=== PATIENT | female | born 1995 | race Caucasian/White ===

== ENCOUNTER 2017-01-22 17:19 | Emergency (ER) | payer BC, OTHER ==
[~2017-01-22] VITALS: Wt 59.0 kg
[2017-01-22 18:17] LABS: BASO % 0.1 % (0.0-1.0); EOS # 0.1 10*3/uL (0.0-0.4); EOS % 0.9 % (1.0-4.0); HEMATOCRIT 34.1 % (37.0-47.0); HEMOGLOBIN 11.6 g/dl (12.0-16.0); LYMPH # 1.5 10*3/uL (1.3-4.4); LYMPH % 12.7 % (27.0-41.0); MEAN CELL VOLUME 93.7 fl (81.0-99.0); MEAN CORPUSCULAR HGB 31.9 pg (27.0-31.0); MEAN PLATELET VOLUME 9.8 fl (9.6-12.3); MONO # 0.8 10*3/uL (0.1-1.0); MONO % 7.2 % (3.0-9.0); NEUT % 78.6 % (47.0-73.0); PLATELET COUNT AUTOMATED 182 10*3/uL (130-400); RED BLOOD COUNT 3.64 10*6/uL (4.10-5.10); RED CELL DISTRI WIDTH 13.3 % (0-14.5); WHITE BLOOD COUNT 11.5 10*3/uL (4.8-10.8)
[2017-01-22 18:34] LABS: ALBUMIN 3.5 gm/dl (3.1-4.5); ALKALINE PHOSPHATASE 64 U/L (45-117); BUN 13 mg/dl (7-24); CHLORIDE 102 mmol/L (98-107); CREATININE 0.75 mg/dL (0.55-1.02); POTASSIUM 3.7 mmol/L (3.5-5.1); SGOT/AST 13 IU/L (3-35); SGPT/ALT 18 U/L (12-78); SODIUM 137 mmol/L (136-145); TOTAL PROTEIN 8.5 gm/dL (6.4-8.2)
[2017-01-22] MEDS ORDERED: CLINDAMYCIN150 MG PO ×2 (18:51→19:14)
== END 2017-01-22 19:01 | disposition home or self-care (01) ==
LOC: ED 17:19
PROVIDERS: Nurse Practitioner Family
DX: O98.812 Other maternal infectious and parasitic diseases complicating pregnancy, second trimester (principal); L02.214 Cutaneous abscess of groin; Z3A.26 26 weeks gestation of pregnancy

== ENCOUNTER → 2020-03-11 | Outpatient (CLI) | payer OTHER ==
[~2020-03-11] MED LIST: CLINDAMYCIN150 MG PO
== END | disposition home or self-care (01) ==
LOC: COVID19 13:46
PROVIDERS: ATTEND Internal Medicine
DX: Z20.828 Contact with and (suspected) exposure to other viral communicable diseases (principal)

== ENCOUNTER 2022-05-14 12:33 | Emergency (ER) | payer OTHER ==
[~2022-05-14] VITALS: Ht 162.5 cm; Wt 52.2 kg
[2022-05-14 13:49] LABS: BASO % 0.3 % (0.0-1.0); EOS # 0.4 10*3/uL (0.0-0.4); EOS % 6.5 % (1.0-4.0); LYMPH # 1.7 10*3/uL (1.3-4.4); LYMPH % 28.6 % (27.0-41.0); MEAN CELL VOLUME 86.6 fl (81.0-99.0); MEAN CORPUSCULAR HGB 28.9 pg (27.0-31.0); MEAN CORPUSCULAR HGB CONC 33.3 g/dl (33.0-37.0); MEAN PLATELET VOLUME 9.3 fl (9.6-12.3); MONO # 0.5 10*3/uL (0.1-1.0); MONO % 7.8 % (3.0-9.0); NEUT # 3.4 10*3/uL (2.3-7.9); NEUT % 56.5 % (47.0-73.0); PLATELET COUNT AUTOMATED 250 10*3/uL (130-400); RED BLOOD COUNT 4.85 10*6/uL (4.10-5.10); RED CELL DISTRI WIDTH 11.9 % (0-14.5)
[2022-05-14 14:07] LABS: ALKALINE PHOSPHATASE 37 U/L (46-116); BUN 14 mg/dl (9-23); CHLORIDE 103 mmol/L (98-107); LIPASE 41 U/L (12-53); POTASSIUM 3.6 mmol/L (3.4-5.1); SGPT/ALT 15 U/L (10-49); TOTAL PROTEIN 6.6 gm/dL (6.0-8.0)
[2022-05-14 14:08] LABS: BILIRUBIN Negative (Negative); BLOOD Negative (Negative); CLARITY Clear (Clear); COLOR Yellow (Yellow); GLUCOSE Negative (Negative); KETONE Negative (Negative); LEUKO ESTERASE Trace (Negative); NITRITE Negative (Negative); UROBILINOGEN 0.2 E.U./dl (0.0-1.0)
[2022-05-14 15:07] LABS: EPITHELIAL CELLS 21-30; RBC 0-2 rbc/hpf (0-2); WBC 0-2 wbc/hpf (0-5)
[2022-05-14 15:16] LABS: B-hCG (QUALITATIVE) NEGATIVE (NEGATIVE)
[2022-05-14] MEDS ORDERED: DICYCLOMINE HCL10 MG PO (16:22)
== END 2022-05-14 16:35 | disposition home or self-care (01) ==
LOC: ED 12:33
PROVIDERS: Physician Assistant
DX: R10.9 Unspecified abdominal pain (principal)

== ENCOUNTER 2024-06-10 11:37 | Emergency (ER) | payer OTHER ==
[~2024-06-10] VITALS: Ht 162.5 cm; Wt 59.0 kg
[~2024-06-10 11:37] MED LIST changes: +DICYCLOMINE HCL10 MG PO
[2024-06-10] MEDS ORDERED: Metoclopramide Hydrochloride 10 MG/2 ML VIAL IV ONE (12:00)
[2024-06-10] MEDS ORDERED: diphenhydrAMINE hydrochloride 50 MG/ML VIAL IV ONE (12:00)
[2024-06-10] MEDS ORDERED: SODIUM CHLORIDE 0.9% 1,000 ML IV ONE (12:00)
[2024-06-10] MEDS ORDERED: Ketorolac Tromethamine 15 MG/ML VIAL IV ONE (12:00)
[2024-06-10 12:12] LABS: MEAN CELL VOLUME 87.9 fl (81.0-99.0); MEAN CORPUSCULAR HGB 28.4 pg (27.0-31.0); MEAN CORPUSCULAR HGB CONC 32.3 g/dl (33.0-37.0); MONO # 0.3 10*3/uL (0.1-1.0); MONO % 10.4 % (3.0-9.0); NEUT # 2.4 10*3/uL (2.3-7.9); NEUT % 78.9 % (47.0-73.0); PLATELET COUNT AUTOMATED 181 10*3/uL (130-400); RED BLOOD COUNT 4.55 10*6/uL (4.10-5.10); RED CELL DISTRI WIDTH 12.1 % (0-14.5)
[2024-06-10 12:36] LABS: BUN 14 mg/dl (9-23); CHLORIDE 103 mmol/L (98-107); POTASSIUM 3.6 mmol/L (3.4-5.1)
[2024-06-10] MEDS ORDERED: REGLAN10 M1 PO (13:08)
[2024-06-10] MEDS ORDERED: IBU800 M2 PO (13:08)
== END 2024-06-10 13:11 | disposition home or self-care (01) ==
LOC: ED 11:37
PROVIDERS: Emergency Medicine
DX: R51.9 Headache, unspecified (principal); R11.2 Nausea with vomiting, unspecified; R63.0 Anorexia; Z68.1 Body mass index [BMI] 19.9 or less, adult

== ENCOUNTER 2025-03-10 17:38 | Emergency (ER) | payer OTHER ==
[~2025-03-10 17:38] MED LIST changes: +IBU800 M2 PO; +REGLAN10 M1 PO
[2025-03-10] MEDS ORDERED: SODIUM CHLORIDE 0.9% 500 ML IV ONE (18:40)
[2025-03-10 18:53] LABS: BASO # 0.0 10*3/uL (0.0-0.1); BASO % 0.5 % (0.0-1.0); EOS # 0.2 10*3/uL (0.0-0.4); EOS % 2.5 % (1.0-4.0); MEAN CELL VOLUME 85.4 fl (81.0-99.0); MEAN CORPUSCULAR HGB 28.6 pg (27.0-31.0); MEAN PLATELET VOLUME 8.9 fl (9.6-12.3); MONO # 0.5 10*3/uL (0.1-1.0); MONO % 5.9 % (3.0-9.0); NEUT # 5.4 10*3/uL (2.3-7.9); NEUT % 64.8 % (47.0-73.0); NUCLEATED RED BLOOD CELL 0.0 % (0.0-0.0); NUCLEATED RED BLOOD CELL 0.0 10*3/uL (0.0-0.0); PLATELET COUNT AUTOMATED 275 10*3/uL (130-400); RED CELL DISTRI WIDTH 11.3 % (0-14.5)
[2025-03-10 19:11] LABS: BUN 13 mg/dl (9-23)
== END 2025-03-11 01:48 | disposition home or self-care (01) ==
LOC: ED 17:38
PROVIDERS: Student in an Organized Health Care Education/Training Program
DX: F41.9 Anxiety disorder, unspecified (principal); R20.2 Paresthesia of skin